=== PATIENT | male | born 1980 | race Caucasian/White ===

== ENCOUNTER 2019-01-01 20:09 | Emergency (ER) | payer OTHER ==
[~2019-01-01] VITALS: Ht 175.3 cm; Wt 84.1 kg
[2019-01-01 20:13] VITALS: TEMP 98
[2019-01-01 21:13] LABS: COLLECTION METHOD CLEAN CATCH
[2019-01-01 21:23] LABS: MUCOUS Present /lpf; PH 6 (5-8); SQUAMOUS EPITHELIAL None Seen /hpf; URINE APPEARANCE Clear; URINE BACTERIA None Seen /hpf; URINE BILIRUBIN Negative (NEGATIVE); URINE BLOOD Negative (NEGATIVE); URINE COLOR Yellow; URINE GLUCOSE Negative (NEGATIVE); URINE KETONE Negative (NEGATIVE); URINE LEUKOCYTE ESTERASE Negative (NEGATIVE); URINE NITRATE Negative (NEGATIVE); URINE PROTEIN(semi-quant) Negative (NEGATIVE); URINE RBC 0-2 /hpf; URINE UROBILINOGEN Negative (NEGATIVE)
[2019-01-01 21:50] LABS: BASO # 0.1 (0.0-0.2); EOS # 0.5 (0.0-0.7); EOS % 4.4 % (0-4.0); GRAN # 6.7 (1.4-6.5); GRAN % 59.2 % (42.2-75.2); HEMOGLOBIN 15.5 g/dl (13.5-18.0); LYMPH % 26.5 % (20.0-51.0); MEAN CELL VOLUME 88 fl (80.0-100.0); MEAN CORPUSCULAR HEMOGLOBIN 31 pg (27.0-31.0); MEAN CORPUSCULAR HGB CONC 34 g/dl (33.0-37.0); MEAN PLATELET VOLUME 10.8 fl (7.4-10.4); MONO % 8.4 % (1.7-9.3); PLATELET COUNT 264 K/mm3 (130-400); RED BLOOD COUNT 5.09 M/mm3 (4.20-5.60); REDCELL DISTRIBUTION WIDTH-CV 13.1 % (11.5-14.5)
[2019-01-01 22:01] LABS: ALBUMIN 3.8 gm/dL (3.5-5.0); BILIRUBIN,TOTAL 0.5 mg/dL (0.0-1.0); CALCIUM 8.4 mg/dL (8.4-10.2); CREATININE, serum 1.11 (0.66-1.25); POTASSIUM 3.4 mmol/L (3.4-5.0); TOTAL PROTEIN 6.8 gm/dL (6.4-8.2)
[2019-01-01 22:59] LABS: C-REACTIVE PROTEIN 0.7 mg/dL (0.0-0.9)
[2019-01-01] MEDS ORDERED: FLEXERIL 1010 MG/TAB PO (23:15)
[2019-01-01 23:43] VITALS: BP 134/67; PULSE 83
== END 2019-01-01 23:45 | disposition home or self-care (01) ==
LOC: COL.ER 20:09
PROVIDERS: Nurse Practitioner
DX: M54.5 Low back pain (principal); F17.210 Nicotine dependence, cigarettes, uncomplicated; Z88.2 Allergy status to sulfonamides
CPT/HCPCS: J1170; J2405; J7030

== ENCOUNTER 2020-10-08 12:44 | Emergency (ER) | payer SELFPAY ==
[~2020-10-08] VITALS: Ht 175.3 cm; Wt 90.9 kg
[~2020-10-08 12:44] MED LIST: FLEXERIL 1010 MG/TAB PO
[2020-10-08 12:56] VITALS: BP 136/70; TEMP 97.7
[2020-10-08] MEDS ORDERED: PREDNISONE10 MG PO (13:37)
[2020-10-08 14:00] VITALS: PULSE 86
== END 2020-10-08 14:00 | disposition home or self-care (01) ==
LOC: COL.ER 12:44
DX: L30.9 Dermatitis, unspecified (principal); Z88.2 Allergy status to sulfonamides

== ENCOUNTER 2021-12-02 23:19 | Emergency (ER) | payer BC ==
[~2021-12-02] VITALS: Ht 175.3 cm; Wt 90.9 kg
[~2021-12-02 23:19] MED LIST changes: +PREDNISONE10 MG PO
[2021-12-02 23:30] VITALS: TEMP 97.9
[2021-12-03 01:44] VITALS: BP 129/76; PULSE 85
[2021-12-03] MEDS ORDERED: PREDNISONE20 MG PO (03:02)
== END 2021-12-03 01:44 | disposition home or self-care (01) ==
LOC: COL.ER 23:19
DX: J20.9 Acute bronchitis, unspecified (principal)
CPT/HCPCS: J7512